=== PATIENT | female | born 1985 | race Caucasian/White ===

== ENCOUNTER 2022-11-27 11:00 | Emergency (ER) | payer OTHER ==
[~2022-11-27] VITALS: Ht 152.4 cm; Wt 81.6 kg
== END 2022-11-27 14:18 | disposition home or self-care (01) ==
LOC: ER 11:00
DX: N75.8 Other diseases of Bartholin's gland (principal)

== ENCOUNTER → 2025-01-01 | Emergency (ER) | payer OTHER ==
[~2025-01-01] VITALS: Ht 152.4 cm; Wt 79.4 kg
[~2025-01-01] MED LIST: CEFTRIAXONE SODIUM 2,000 MG VIAL IV ONE; CEFTRIAXONE SODIUM 2,000 MG VIAL ONE; KETOROLAC TROMETHAMINE 30 MG VIAL IV STA; KETOROLAC TROMETHAMINE 30 MG VIAL ONE; KETOROLAC TROMETHAMINE 60 MG VIAL IM ONE; MEPERIDINE HCL/PF 50 MG/ML VIAL IM STA; PROMETHAZINE HCL 25 MG/ML AMPUL IM STA; PROMETHAZINE HCL 25 MG/ML AMPUL ONE
[2025-01-01 11:46] LABS: HEMATOCRIT 37.5 % (36.0-45.00); HEMOGLOBIN 12.3 g/dL (12.0-15.00); MEAN CELL VOLUME 83.3 fL (80.00-100.00); MEAN CORPUSCULAR HEMOGLOBIN 27.4 pg (27.00-32.0); MEAN CORPUSCULAR HGB CONC 32.9 g/dl (32.0-36.0); PLATELET COUNT 307 K/uL (150-450); RED CELL DISTRIBUTION WIDTH 14.7 % (11.5-14.5)
[2025-01-01 11:59] LABS: CALCIUM 9.5 mg/dL (8.5-10.1); CREATININE SERUM 0.56 mg/dL (0.55-1.02); GFR 119.9; POTASSIUM 3.85 mEq/L (3.5-5.1)
[2025-01-01 12:18] LABS: URINE APPEARANCE Clear; URINE BILIRRUBIN Negative (NEGATIVE); URINE BLOOD Trace; URINE COLOR Yellow; URINE GLUCOSE Negative (NEGATIVE); URINE KETONE Negative (NEGATIVE); URINE LEUKOCYTE Negative; URINE NITRATE Negative; URINE PROTEIN Negative (NEGATIVE); URINE UROBILINOGEN 0.2 E.U./dl
[2025-01-01 12:21] LABS: URINE BACTERIA 145.6 uL (0.0-1933); URINE EPITHELIAL CELLS 7.5 uL (0.0-38.8); URINE RBC 41.8 uL (0.0-20.8); URINE WBC 10.4 uL (0.0-23.2)
[2025-01-01 12:55] LABS: URINE CAST 0.14 uL (0.0-1.40)
== END | disposition home or self-care (01) ==
LOC: ER 09:13
PROVIDERS: General Practice
DX: N75.8 Other diseases of Bartholin's gland (principal)
CPT/HCPCS: 36415; 96365; 96372; 99285; J0696; J1885; J2250